=== PATIENT | female | born 1995 | race Caucasian/White ===

== ENCOUNTER → 2018-07-20 12:37 | Outpatient (CLI) | payer OTHER ==
[2015-03-18 19:24] VITALS: BMI 38.9
[~2018-07-20 12:37] MED LIST: HYDROCODONE-APA1 TAB PO; IBUPROFEN600 MG PO; PRENATAL COMPLE1 TAB PO; [UNRECOGNIZED DRUG - OTHER]
== END | disposition home or self-care (01) ==
LOC: D.LDO 12:37
PROVIDERS: ATTEND Obstetrics & Gynecology
DX: O26.899 Other specified pregnancy related conditions, unspecified trimester (principal); Z3A.00 Weeks of gestation of pregnancy not specified

== ENCOUNTER → 2018-08-31 15:44 | Outpatient (CLI) | payer OTHER ==
[2015-03-18 19:24] VITALS: BMI 38.9
== END | disposition home or self-care (01) ==
LOC: D.LDO 15:44
PROVIDERS: ATTEND Obstetrics & Gynecology
DX: O36.8190 Decreased fetal movements, unspecified trimester, not applicable or unspecified (principal); Z3A.00 Weeks of gestation of pregnancy not specified

== ENCOUNTER → 2018-09-29 17:52 | Outpatient (CLI) | payer OTHER ==
[2015-03-18 19:24] VITALS: BMI 38.9
[2018-09-29 18:39] LABS: APPEARANCE CLEAR (CLEAR); BILIRUBIN NEGATIVE (NEGATIVE); COLOR YELLOW (YELLOW); GLUCOSE NEGATIVE (NEGATIVE); KETONE SMALL mg/dL (NEGATIVE); NITRITE NEGATIVE (NEGATIVE); PROTEIN TRACE mg/dL (NEGATIVE); UROBILINOGEN NORMAL (NORMAL)
[2018-09-29 18:41] LABS: BACTERIA FEW /hpf (NONE SEEN); EPITHELIAL CELLS 0-5 /hpf (0-5); RED CELLS - URINE 0-5 /hpf (0-5); WHITE CELLS - URINE 0-5 /hpf (0-5)
== END | disposition home or self-care (01) ==
LOC: D.LDO 17:52
PROVIDERS: ATTEND Obstetrics & Gynecology
DX: O24.913 Unspecified diabetes mellitus in pregnancy, third trimester (principal); Z3A.35 35 weeks gestation of pregnancy; M54.9 Dorsalgia, unspecified

== ENCOUNTER → 2018-10-10 17:35 | Outpatient (CLI) | payer OTHER ==
[2015-03-18 19:24] VITALS: BMI 38.9
[~2018-10-10 17:35] MED LIST changes: +ACETAMINOPHEN500 M1 PO; +CYCLOBENZAPRINE10 MG PO; +HYDROCODON-ACE1 EA10 PO; +PROTONIX40 MG PO
== END | disposition home or self-care (01) ==
LOC: D.LDO 17:35
PROVIDERS: ATTEND Obstetrics & Gynecology
DX: O10.913 Unspecified pre-existing hypertension complicating pregnancy, third trimester (principal); Z3A.37 37 weeks gestation of pregnancy

== ENCOUNTER → 2018-10-17 16:13 | Outpatient (CLI) | payer OTHER ==
[2015-03-18 19:24] VITALS: BMI 38.9
== END | disposition home or self-care (01) ==
LOC: D.LDO 16:13
PROVIDERS: ATTEND Obstetrics & Gynecology
DX: O26.893 Other specified pregnancy related conditions, third trimester (principal); Z3A.38 38 weeks gestation of pregnancy

== ENCOUNTER → 2018-10-20 13:39 | Outpatient (CLI) | payer OTHER ==
[2015-03-18 19:24] VITALS: BMI 38.9
[2018-10-20 14:41] LABS: BASOPHILS 0.1 % (0-2); EOSINOPHILS 0.6 % (0-7); IMMATURE GRANULOCYTES 0.4 % (0-5); LYMPHOCYTES 19.5 % (15-50); MCH 28.2 pg (26.0-34.0); MCHC 34.4 g/dL (31.0-37.0); MCV 82.1 fL (80.0-100.0); MEAN PLATELET VOLUME 10.6 fL (7.4-10.4); MONOCYTES 5.8 % (2-11); NEUTROPHILS 73.6 % (40-80); PLATELET COUNT 185 10x3/uL (130-400); RDW 14.8 % (11.5-14.5); WBC 11.4 10x3/uL (4.8-10.8)
[2018-10-20 15:10] LABS: ALBUMIN 2.5 g/dL (3.4-5.0); ALKALINE PHOSPHATASE 206 U/L (46-116); ALT (SGPT) 19 U/L (10-68); BILIRUBIN - INDIRECT 0.23 mg/dL (0.00-1.00); BILIRUBIN - TOTAL 0.33 mg/dL (0.2-1.3); CALC OSMOLALITY 268 mosm/kg (275-300); CALCIUM 8.2 mg/dL (8.5-10.1); CARBON DIOXIDE 22.6 mmol/L (21.0-32.0); CHLORIDE - SERUM 102 mmol/L (98-107); CREATININE - SERUM 0.6 mg/dL (0.6-1.3); GLUCOSE 74 mg/dL (74-106); POTASSIUM - SERUM 3.8 mmol/L (3.5-5.1); PROTEIN - SERUM 6.3 g/dL (6.4-8.2); SODIUM 136 mmol/L (136-145); UREA NITROGEN 7 mg/dL (7-18); URIC ACID 5.3 mg/dL (2.6-7.2); eGFR NON AFRICAN AMERICAN > 90 mL/min (90-120)
== END | disposition home or self-care (01) ==
LOC: D.LDO 13:39
PROVIDERS: ATTEND Obstetrics & Gynecology
DX: O26.893 Other specified pregnancy related conditions, third trimester (principal); Z3A.37 37 weeks gestation of pregnancy

== ENCOUNTER → 2018-10-21 11:15 | Outpatient (CLI) | payer OTHER ==
[2015-03-18 19:24] VITALS: BMI 38.9
== END | disposition home or self-care (01) ==
LOC: D.LDO 11:15
PROVIDERS: ATTEND Obstetrics & Gynecology
DX: O16.3 Unspecified maternal hypertension, third trimester (principal); Z3A.38 38 weeks gestation of pregnancy

== ENCOUNTER → 2018-10-22 09:39 | Outpatient (CLI) | payer OTHER ==
[2015-03-18 19:24] VITALS: BMI 38.9
== END | disposition home or self-care (01) ==
LOC: D.LDO 09:39
PROVIDERS: ATTEND Obstetrics & Gynecology
DX: O16.3 Unspecified maternal hypertension, third trimester (principal); Z3A.37 37 weeks gestation of pregnancy

== ENCOUNTER 2018-10-23 07:30 | Inpatient (IN) | payer OTHER ==
[~2018-10-23] VITALS: Ht 162.6 cm; Wt 111.4 kg
[~2018-10-23 07:30] MED LIST changes: -HYDROCODON-ACE1 EA10 PO
[2018-10-23 11:16] LABS: HEMATOCRIT 31.8 % (36.0-48.0); MCH 28.1 pg (26.0-34.0); MCHC 34.6 g/dL (31.0-37.0); MCV 81.3 fL (80.0-100.0); MEAN PLATELET VOLUME 10.8 fL (7.4-10.4); RBC 3.91 10x6/uL (4.00-5.40); RDW 14.5 % (11.5-14.5); WBC 10.7 10x3/uL (4.8-10.8)
--- NOTE | 2018-10-23 13:23 | NUR ---
CARE ASSUMED FROM GUNNAR TAVAREZ
--- NOTE | 2018-10-23 14:12 | NUR ---
PT RCVD VIA BED TO ROOM 1274 FROM [employer]PER[employer]OR [employer]FA[employer]URE AT 1359. PT C/O PAIN AT INCISION SITE. JUD ROJAS REPORTS MOD TO HEAVY LOCHIA AND PT IS ON SECOND BAG OF PITOCIN, INFUSING TO RIGHT HAND VIA GRAVITY. ABD DSG C/D/I. FUNDUS BOGGY, HEAVY RUBRA LOCHIA NOTED TO PERIPAD, COMPLETELY SATURATED AND BOB STATES HE CHANGED IT 20 MINUTES AGO. LOCHIA NOTED TO HAVE SOAKED THROUGH CHUX PADS AND TOWELS UNDER PATIENT WELL. BOB ASSSITS THIS RN TO TURN PT TO CLEAN UP AND CHANGE PADS. UPON TURNING PATIENT, APPROX 3-4 GOLF BALL SIZE CLOTS DISLOGED. FUNDAL MASSAGED REPEATED, FUNDUS REMAINS BOGGY WITH STEADY TRICKLE OF LOCHIA. BOB INSTRUCTED TO NOTIFY RENAL DIALYSIS TECHNICIAN THAT THIS RN NEEDS CYTOTEC. JUD SOLIZ TO ROOM WITH [employer] CYTOTEC IN HAND AND WITH DR COLLINS ON UNIT MOBILE PHONE. DR COLLINS ORDERS TO ADMIN THE [employer] CYTOTEC RECTALLY NOW AND EXPRESS PATIENT'S UTERUS WELL. JUD ROJAS REPORTS OFF HIS LAST SET OF PACU VITALS AND EXITS ROOM. JUD SOLIZ ASSISTS THIS RN TO TURNING PATIENT AND CYTOTEC IS ADMIN BY THIS RN ORDERED. FUNDUS MASSAGED UNTIL FIRM. SMALL CLOTS EXPELLED. PERICARE DONE AND PADS CHANGED AGAIN BY THIS RN AND JUD SOLIZ. PT CRYING REQUESTING PAIN MEDICAITON. WILL SET UP MANAGER COMMODITIES ORDERED AND CONTINUE TO MONITOR.
--- NOTE | 2018-10-23 14:20 | NUR ---
ELEVATED BP NOTED, SEE PAPER CHART FOR PRINTOUT OF ALL PT'S POST-OP VS. WILL ALLOW TIME FOR PT PAIN CONTROL AND REASSSES BP.
--- NOTE | 2018-10-23 14:23 | NUR ---
EMT I/85 SET UP ORDERED. PT INSTRUCTED ON USE AND PRESSES BUTTON. BOLUS DOSE ADMIN WELL ORDERED FOR PT C/O PAIN 12/07. FUNDUS FIRMS WITH MASSAGE. MODERATE RUBRA LOCHIA NOTED WITH FEW NICKEL SIZED CLOTS. BED TOWEL CHANGED. LOYOLA CATH DRAINING CLEAR YELLOW URINE, 350ML EMPTIED FROM UROMETER. SCD'S ON LE BILAT AND ON PUMP. IV PITOCIN INFUSING ORDERED AT 125ML/H TO RIGHT HAND. SIG OTHER AT BEDSIDE. WILL CONT TO MONITOR.
--- NOTE | 2018-10-23 15:00 | NUR ---
THIS RN TO ROOM FOR FUNDAL CHECK. FUNDUS FIRMS WITH MASSAGE, SMALL RUBRA LOCHIA WITH SMALL CLOT EXPRESSED. 125ML CLEAR YELLOW URINE EMPTIED FROM UROMETER. WILL CONT TO MONITOR.
--- NOTE | 2018-10-23 15:30 | NUR ---
PATIENT BREASFEEDING . FUNDAL CHECK DONE, FF, ML, U/1. SMALL RUBRA LOCHIA WITHOUT CLOTS. PT REASSURED AND ENCOURAGED WITH . WILL CONT TO MONITOR.
--- NOTE | 2018-10-23 16:30 | NUR ---
FF, ML, U/1. SMALL RUBRA LOCHIA, NO CLOTS. 125ML CLEAR YELLOW URINE EMPTIED FROM UROMETER. FANS DELIVERS CLEAR LIQUID DINNER TRAY. TRAY SET UP FOR PT, SPRITE ALSO PROVIDED PER PT REQUEST. PT DENIES FURTHER NEEDS, STATES SHE IS FEELING MUCH BETTER. SRUX2, CL IN REACH. WILL CONT TO MONITOR.
--- NOTE | 2018-10-23 17:14 | NUR ---
DR COLLINS GIVEN REPORT ON TACHYCARDIA, GOOD URINE OUTPUT, DECREASE IN LOCHIA, AND BP'S. ORDER [facility] FOR CBC AND EKG, AND CALL DR CELESTE WITH RESULTS.
[2018-10-23 17:54] LABS: BASOPHILS 0.1 % (0-2); EOSINOPHILS 0.1 % (0-7); HEMATOCRIT 30.7 % (36.0-48.0); HEMOGLOBIN 10.5 g/dL (12-16); IMMATURE GRANULOCYTES 0.5 % (0-5); LYMPHOCYTES 10.5 % (15-50); MCH 27.9 pg (26.0-34.0); MCHC 34.2 g/dL (31.0-37.0); MCV 81.4 fL (80.0-100.0); MEAN PLATELET VOLUME 10.9 fL (7.4-10.4); MONOCYTES 4.4 % (2-11); NEUTROPHILS 84.4 % (40-80); PLATELET COUNT 175 10x3/uL (130-400); RBC 3.77 10x6/uL (4.00-5.40); RDW 14.4 % (11.5-14.5)
--- NOTE | 2018-10-23 18:08 | NUR ---
THIS RN TO ROOM TO HANG NEW BAG PITOCIN. 110ML CLEAR YELLOW URINE EMPTIED FROM UROMETER. FF, ML, U/1. SMALL RUBRA LOCHIA, NO CLOTS. PT DENIES NEEDS. SRUx2, CL IN REACH. WILL CONT TO MONITOR.
[2018-10-23 18:13] LABS: WBC 15.2 10x3/uL (4.8-10.8)
--- NOTE | 2018-10-23 18:26 | NUR ---
RT TO ROOM OBTAINING EKG
--- NOTE | 2018-10-23 18:40 | NUR ---
DR CELESTE PHONED WITH LAB RESULTS AND EKG. ORDER RCVD TO CONTINUE TO MONITOR HR AND CHECK TEMPS WITH ALL VS.
--- NOTE | 2018-10-23 19:05 | NUR ---
REPORT TO PM SHIFT RN.
[2018-10-23 20:15] VITALS: BP 139/93
--- NOTE | 2018-10-23 20:15 | NUR ---
PATIENT SITTING IN BED HOLDING . SHIFT ASSESSMENT COMPLETED, SEE FLOWSHEET. PERICARE DONE, BLEEDING SMALL RUBRA, PAD CHANGED AND FUNDUS FIRM,ML/U-2. LOYOLA DRAINING TO GRAVITY, PUBLIC HEALTH CLINICAL NURSE SPECIALIST IN PLACE FOR PAIN CONTROL AND BED LOCKED IN LOW POSITION WITH SIDERAILS UPX2 AND CALL MURILLO AND TRAY TABLE IN REACH. WILL CONTINUE TO MONITOR.
[2018-10-23 20:23] LABS: BASOPHILS 0.1 % (0-2); EOSINOPHILS 0.2 % (0-7); HEMATOCRIT 29.6 % (36.0-48.0); HEMOGLOBIN 10.2 g/dL (12-16); IMMATURE GRANULOCYTES 0.5 % (0-5); LYMPHOCYTES 15.4 % (15-50); MCHC 34.5 g/dL (31.0-37.0); MCV 81.3 fL (80.0-100.0); MEAN PLATELET VOLUME 10.7 fL (7.4-10.4); MONOCYTES 4.4 % (2-11); NEUTROPHILS 79.4 % (40-80); PLATELET COUNT 161 10x3/uL (130-400); RBC 3.64 10x6/uL (4.00-5.40); RDW 14.3 % (11.5-14.5)
--- NOTE | 2018-10-23 20:30 | NUR ---
CHICKEN BROTH AND APPLE JUICE PROVIDED PER PT REQUEST.
[2018-10-23 20:59] VITALS: BP 139/93; Ht 162.6 cm; Wt 111.4 kg
--- NOTE | 2018-10-23 21:30 | NUR ---
PT SLEEPING QUIETLY WITH EYES CLOSED. FATHER OF THE BABY ON THE COUCH HOLDING THE BABY. WILL CONTINUE TO MONITOR.
[2018-10-23 22:42] LABS: UDS - AMPHET NEGATIVE QUAL (NEGATIVE); UDS - BARB NEGATIVE QUAL (NEGATIVE); UDS - BENZO NEGATIVE QUAL (NEGATIVE); UDS - COCAINE NEGATIVE QUAL (NEGATIVE); UDS - OPIATE NEGATIVE QUAL (NEGATIVE); UDS - PCP NEGATIVE QUAL (NEGATIVE); UDS - THC NEGATIVE QUAL (NEGATIVE)
--- NOTE | 2018-10-23 22:50 | NUR ---
CHICKEN BROTH AND CRACKERS PROVIDED PER PT REQUEST. NO FURTHER NEEDS IDENTIFIED. WILL CONTINUE TO MONITOR.
[2018-10-24 00:16] VITALS: BP 134/97
--- NOTE | 2018-10-24 00:25 | NUR ---
PERICARE PERFORMED, SMALL CLOT NOTED, BLEEDING SMALL RUBRA. FUNDUS MASSAGED, FIRM,ML,U-2. CLEAN PADS PLACED. PT REPOSITIONED IN THE BED. LOYOLA CATHETER EMPTIED, SEE I+O FLOWSHEET.CLEAN SHEETS AND BLANKET PROVIDED ALONG WITH A CUP OF ICE. NO FURTHER NEEDS IDENTIFIED. WILL CONTINUE TO MONITOR.
--- NOTE | 2018-10-24 02:11 | NUR ---
PATIENT RESTING QUIETLY WITH EYES CLOSED, EASILY AROUSED TO VERBAL AND DENIES PAIN OR NEEDS AT THIS TIME. IV FLUIDS HUNG VIA ALARIS PUMP PER MD ORDERS. SEE EMAR.
--- NOTE | 2018-10-24 04:50 | NUR ---
PT RESTING QUIETLY IN BED WITH EYES CLOSED, RESPIRATIONS EVEN AND NON LABORED. EASILY AROUSED TO VERBAL STIMULI. TEMPERATURE IN ROOM ADJUSTED PER PT REQUEST. NO FURTHER NEEDS IDENTIFIED. WILL CONTINUE TO MONITOR.
[2018-10-24 05:00] VITALS: BP 132/95
[2018-10-24 07:18] LABS: BASOPHILS 0.1 % (0-2); HEMATOCRIT 27.5 % (36.0-48.0); HEMOGLOBIN 9.4 g/dL (12-16); IMMATURE GRANULOCYTES 0.3 % (0-5); MCH 27.8 pg (26.0-34.0); MCHC 34.2 g/dL (31.0-37.0); MCV 81.4 fL (80.0-100.0); MEAN PLATELET VOLUME 10.2 fL (7.4-10.4); NEUTROPHILS 72.6 % (40-80); PLATELET COUNT 142 10x3/uL (130-400); RBC 3.38 10x6/uL (4.00-5.40); RDW 14.4 % (11.5-14.5)
[2018-10-24 07:20] LABS: WBC 10.1 10x3/uL (4.8-10.8)
[2018-10-24 07:33] VITALS: BP 126/91
--- NOTE | 2018-10-24 07:47 | NUR ---
assessment done. vs done. pt awake and alert. verbal responses appro to questions. travis at will. states us using champion of sustainable design. states would like to get up and start moving around. moving self about in bed. states would like solid foods. bowel sounds present but denies passing gas. fundus u1/firm. no discharge with massage. noted mod dark lochia on pad. pt states it has several hours since pad changed.
--- NOTE | 2018-10-24 07:51 | NUR ---
dr field here to see pt.
--- NOTE | 2018-10-24 07:51 | NUR ---
abd dressing removed by dr field. angelina intact.
[2018-10-24 08:11] LABS: RAPID PLASMA REAGIN Non Reactive (Non Reactive)
--- NOTE | 2018-10-24 09:00 | NUR ---
iv changed to saline lock. nino cath removed post bulb deflated with 650cc urine. deies needs at this time.
--- NOTE | 2018-10-24 09:40 | NUR ---
UP TO BATHROOM- TOLERATED WELL. VOIDED 400CC CLEARISH URINE- NOTED ONE SMALL CLOT. RETURNS TO BED. STATES WOULD LIKE PAIN MEDICATION AT THIS TIME. RATES PAIN A 3 ON SCALE OF 0-10 -"UNLESS I MOVE" THEN RATES PAIN A 7 ON SCALE OF 0-10.
--- NOTE | 2018-10-24 09:42 | NUR ---
AWAKE. STATES THAT NOT HURTING TOO BAD BUT WILL TAKE ORAL PAIN MEDICATION.
--- NOTE | 2018-10-24 10:04 | NUR ---
PAIN MED GIVEN.
--- NOTE | 2018-10-24 11:00 | NUR ---
UP TO BATHROOM- VOIDED 600CC- TOLERATED WELL.
[2018-10-24 12:17] VITALS: BP 106/66
--- NOTE | 2018-10-24 13:42 | NUR ---
requesting pain medication before getting up for shower. rates pain a 2 on scale of 0-10. med given.
--- NOTE | 2018-10-24 16:00 | NUR ---
UP TO SHOWER- LINENS CHANGED. TOLERATED WELL. INST ON INCISION CARE.
--- NOTE | 2018-10-24 18:05 | NUR ---
sitting up in bed- at breast. requesting pain medication- co pain 3 on scale of 0-10. states pain is at incision. nipple cream also provided per request.
[2018-10-24 19:30] VITALS: BP 134/93
--- NOTE | 2018-10-24 19:30 | NUR ---
SHIFT ASSESSMENT COMPLETED, SEE FLOWSHEET.
--- NOTE | 2018-10-24 22:04 | NUR ---
NORCO 10/325MG PO PER MD ORDERS. DENIES OTHER NEEDS. PT IS VISITING WITH FAMILY, BED REMAINS LOCKED IN LOW POSITION, SIDE RAILS UPX2, CALL MURILLO AND TRAY TABLE IN REACH. WILL CONTINUE TO MONITOR.
--- NOTE | 2018-10-24 23:30 | NUR ---
PT SITTING UP IN BED WITH LYING IN THE BED GETTING HER DIAPER CHANGED. BABY WIPES PROVIDED PER REQUEST, NO FURTHER NEEDS IDENTIFIED. WILL CONTINUE TO MONITOR.
--- NOTE | 2018-10-25 02:59 | NUR ---
PATIENT LAYING IN BED, INFANT TO NURSERY PER PT REQUEST. NO NEEDS IDENTIFIED. WILL CONTINUE TO MONITOR
--- NOTE | 2018-10-25 04:50 | NUR ---
PT SLEEPING WITH EYES CLOSED, RESPIRATIONS EVEN AND NON LABORED. WILL CONTINUE TO MONITOR.
--- NOTE | 2018-10-25 07:30 | NUR ---
DR COLLINS ON UNIT FOR ROUNDING, SEE PT, DISCUSSES DISCHARGE TO HOME TODAY. VERBAL ORDER RECEIVED FOR D/C TO HOME, AND WRITTEN PRESCRIPTIONS PROVIDED FOR DISCHARGE. WILL PROCEED ORDERED.
[2018-10-25 07:43] VITALS: BP 134/90
--- NOTE | 2018-10-25 07:43 | NUR ---
THIS RN TO ROOM FOR SHIFT ASSESSMENT AT 0738. PT SITTING UP IN BED, EATING PT C/O PAIN RATED 8/10 AT THIS TIME. PT REQUESTING PAIN MEDICATION. PRN PAIN MEDS ADMIN ORDERED, SEE EMAR FOR DOC. SHIFT ASSESSMENT COMPLETED, VSS, SEE FLOWSHEET FOR DOC. RIGHT HAND PIV REMOVED PER DISCHARGE ORDER, CATH INTACT, PRESSURE HELD AND BANDAID APPLIED. DISCHARGE TO HOME DISCUSSED. PT PROVIDED WITH FRESH ICE WATER, DENIES FURTHER NEEDS AT THIS TIME. LIGHTS DIMMED FOR REST PER PT REQUEST. SLEEPING IN [place] AT BEDSIDE, PT SPOUSE RESTING ON BEDSIDE COUCH. SRUx2, CL IN REACH. WILL CONT TO MONITOR.
--- NOTE | 2018-10-25 08:45 | NUR ---
THIS RN TO ROOM FOR PT CHECK, PT RESTING SUPINE WITH EYES CLOSED RESPIRATIONS EVEN AND UNLABORED. SRUx2, CL IN REACH. WILL CONT TO MONITOR.
[2018-10-25] MEDS ORDERED: IBUPROFEN600 MG PO (08:55)
[2018-10-25] MEDS ORDERED: HYDROCODON-ACE1 EA10 PO (08:55)
--- NOTE | 2018-10-25 10:15 | NUR ---
PT SITTING UP IN BED. PT DENIES PAIN OR ANY NEEDS. SRUx2, CL IN REACH. WILL CONT TO MONITOR.
--- NOTE | 2018-10-25 11:30 | NUR ---
PT PROVIDED WITH PANTIES AND PADS PER REQUEST, DENIES FURTHER NEEDS. WILL CONT TO MONITOR.
--- NOTE | 2018-10-25 12:05 | NUR ---
PT GIVEN DISCHARGE INSTRUCTIONS WELL WRITTEN PRESCRIPTIONS PROVIDED FOR PAIN CONTROL POST D/C TO HOME. PT VERBALIZES UNDERSTANDING AND DENIES QUESTIONS, SIGNS CHART COPIES. PT REQUESTING PAIN MED BEFORE D/C TO HOME.
--- NOTE | 2018-10-25 12:10 | NUR ---
PT ADMIN NORCO REQUESTED FOR PAIN CONTROL FOR RIDE HOME AND WHILE WAITING FOR PRESCRIPTIONS TO BE FILLED. PT RATING PAIN 5/10 AT REST, WORSE WITH MOVEMENT. SEE EMAR FOR DOC.
--- NOTE | 2018-10-25 12:30 | NUR ---
PT OFF UNIT VIA W/C WITH IN CARSEAT, TO PRIVATE VEHICLE FOR SPOUSE TO DRIVE HOME. INSTRUCTIONS AND PRESCRIPTIONS IN HAND.
--- NOTE | 2018-11-13 13:26 | OP ---
PATIENT NAME: STEFANIA FISCHER MEDICAL RECORD: [id number] :95 LOCATION:[facility].[id number] ADMISSION DATE:10/23/18 SURGEON: JOAO GUILLEN MD DATE OF OPERATION: 10/23/2018 PREOPERATIVE DIAGNOSES: 1. Term intrauterine at 39 weeks. 2. History of previous section. POSTOPERATIVE DIAGNOSES: 1. Term intrauterine at 39 weeks. 2. History of previous section. PROCEDURE: A repeat low transverse section. SURGEON: Joao Guillen MD ANESTHESIA: Regional via spinal. ESTIMATED BLOOD LOSS: 1000 cc. INTRAVENOUS FLUIDS: Per anesthesia record. FINDINGS: 1. Grossly normal-appearing fallopian tubes and ovaries. 2. Viable infant, Apgars 9 at 1 and 9 at 5. 3. Placenta delivered manually intact, 3-vessel cord noted. SPECIMENS: Placenta and cord for gases. PROCEDURE IN DETAIL: The patient was taken to the operating room where regional anesthesia was achieved without difficulty. The patient was then prepped and draped in normal sterile fashion in the dorsal supine position. SCDs were on and functioning normally. A Leonardo catheter had been placed and was draining freely. The patient was then prepped and draped. A repeat Pfannenstiel skin incision was made, extended downward to the underlying subcutaneous fat to level of fascia. The fascia was then excised in the midline with scalpel and extended bilaterally using the Koroma scissors. Superior and inferior aspects of the fascial incision were grasped with Juan José clamps times 2, tented upward, and sharply dissected from the underlying rectus muscle using the Koroma scissors and the Bovie cautery. Rectus muscle was then bluntly in the midline and the peritoneum identified. The peritoneum was entered sharply using the Metzenbaum scissors at the superior aspect of the incision. Following confirmation of intraperitoneal placement, further dissection was then performed of the peritoneum and the tissue surrounding the bladder. A bladder flap was created by excising the anterior leaf of the broad ligament across the lower uterine segment with several areas of scar from previous section. A bladder blade was then placed into the pelvis. A low transverse incision was made using the scalpel. The was delivered atraumatically and it was bulb suctioned upon delivery. Cord was clamped times 2, cut, and the was handed to awaiting nursery team. Cord was then obtained for gases and the placenta was removed manually intact, 3-vessel cord was noted. The uterus was then vigorously massaged and cleared of all clots and debris using a dry lap sponge. The uterine incision was repaired with 0 Vicryl in a running locked fashion times 2 with good hemostasis noted. Posterior cul-de-sac was then OPERATIVE REPORT [id number] STEFANIA FISCHER thoroughly irrigated and uterus was replaced into the pelvis. The anterior cul-de-sac was then thoroughly irrigated and good hemostasis was noted from the uterine incision. Counts were correct times 2 for sponges, needles, and instruments. At this point, the fascia was repaired with 0 loop PDS times 1 and the skin repaired with angelina. The patient tolerated the procedure well, transferred to postanesthesia recovery stable without incident. TRANSINT:[id number] Voice Confirmation ID: [id number] DOCUMENT ID: [id number] JOAO GUILLEN MD at 1326 CC: [id number] DICTATION DATE: 11/10/18921 METAL SPRAYER MACHINED PARTS: 11/10/18 1134 DIS IN 10/25/18 [facility] [address] [place] [address]
== END 2018-10-25 12:30 | disposition home or self-care (01) | DRG 788 ==
LOC: D.LD 10:18 → D.WS 12:00 → D.LD 10-25 12:30
PROVIDERS: ADMIT Obstetrics & Gynecology; ATTEND Obstetrics & Gynecology
PROC: 10D00Z1 Extraction of Products of Conception, Low, Open Approach (ICD-10-PCS; principal; 2018-10-23 12:00)
DX: O34.211 Maternal care for low transverse scar from previous cesarean delivery (principal); Z3A.39 39 weeks gestation of pregnancy; Z37.0 Single live birth

== ENCOUNTER → 2018-11-01 16:12 | Outpatient (CLI) | payer OTHER ==
[2018-10-23 20:59] VITALS: BMI 42.1
[~2018-11-01 16:12] MED LIST changes: +HYDROCODON-ACE1 EA10 PO
== END | disposition home or self-care (01) ==
LOC: D.LDO 16:12
PROVIDERS: ATTEND Obstetrics & Gynecology
DX: O90.89 Other complications of the puerperium, not elsewhere classified (principal); R51 Headache

== ENCOUNTER → 2018-11-03 15:13 | Outpatient (CLI) | payer OTHER ==
[2018-10-23 20:59] VITALS: BMI 42.1
== END | disposition home or self-care (01) ==
LOC: D.LDO 15:13
PROVIDERS: ATTEND Obstetrics & Gynecology
DX: O90.89 Other complications of the puerperium, not elsewhere classified (principal); R51 Headache

== ENCOUNTER 2020-06-20 13:50 | Emergency (ER) | payer OTHER ==
[~2020-06-20] VITALS: Ht 162.6 cm; Wt 91.4 kg
[2020-06-20 13:54] VITALS: BP 142/102; Ht 162.6 cm; Wt 91.4 kg
[2020-06-20 14:15] LABS: BASOPHILS 0.2 % (0-2); EOSINOPHILS 2.2 % (0-7); HEMATOCRIT 41.2 % (36.0-48.0); IMMATURE GRANULOCYTES 0.2 % (0-5); LYMPHOCYTE ABS# 3.64 10x3/uL (1.18-3.74); MCV 85.3 fL (80.0-100.0); MEAN PLATELET VOLUME 10.2 fL (7.4-10.4); MONOCYTES 5.9 % (2-11); NEUTROPHIL ABS# 4.28 10x3/uL (1.56-6.13); NEUTROPHILS 49.5 % (40-80); RBC 4.83 10x6/uL (4.00-5.40); WBC 8.7 10x3/uL (4.8-10.8)
[2020-06-20 14:19] LABS: PLATELET COUNT 253 10x3/uL (130-400)
[2020-06-20 14:24] LABS: CALC OSMOLALITY 275 mosm/kg (275-300); CALCIUM 9.9 mg/dL (8.5-10.1); CARBON DIOXIDE 26.4 mmol/L (21.0-32.0); CHLORIDE - SERUM 101 mmol/L (98-107); CREATININE - SERUM 0.9 mg/dL (0.6-1.3); GLUCOSE 91 mg/dL (74-106); POTASSIUM - SERUM 3.6 mmol/L (3.5-5.1); SODIUM 138 mmol/L (136-145); UREA NITROGEN 13 mg/dL (7-18); eGFR NON AFRICAN AMERICAN 81 mL/min (90-120)
[2020-06-20 14:30] LABS: ALBUMIN 4.5 g/dL (3.4-5.0); ALKALINE PHOSPHATASE 89 U/L (30-120); ALT (SGPT) 107 U/L (10-68); BILIRUBIN - TOTAL 0.62 mg/dL (0.2-1.3); MAGNESIUM - SERUM 2.2 mg/dL (1.8-2.4); PROTEIN - SERUM 8.8 g/dL (6.4-8.2)
[2020-06-20] MEDS ORDERED: GEODON20 MG PO (14:36)
== END 2020-06-20 15:46 | disposition home or self-care (01) ==
LOC: D.ER 13:50
PROVIDERS: Emergency Medicine
DX: R41.82 Altered mental status, unspecified (principal); I10 Essential (primary) hypertension

== ENCOUNTER 2020-08-08 04:03 | Emergency (ER) | payer OTHER ==
[~2020-08-08] VITALS: Ht 162.6 cm; Wt 100.0 kg
[~2020-08-08 04:03] MED LIST changes: +GEODON20 MG PO
[2020-08-08 04:09] VITALS: BP 137/97; Ht 162.6 cm; Wt 100.0 kg
[2020-08-08 04:58] LABS: BACTERIA MOD HPF (<MOD); BILIRUBIN NEGATIVE (NEGATIVE); KETONE NEGATIVE mg/dL (< 1+); NITRITE NEGATIVE (NEGATIVE); SQUAMOUS EPITHELIAL 3 HPF (0-4); UROBILINOGEN NORMAL mg/dL (< 2); WHITE CELLS - URINE 3 HPF (0-4)
[2020-08-08 05:56] LABS: BASOPHILS 0.3 % (0-2); EOSINOPHILS 1.6 % (0-7); HEMOGLOBIN 12.8 g/dL (12-16); LYMPHOCYTES 29.6 % (15-50); MCHC 34.5 g/dL (31.0-37.0); MEAN PLATELET VOLUME 8.8 fL (7.4-10.4); MONOCYTES 5.7 % (2-11); NEUTROPHILS 62.8 % (40-80); PLATELET COUNT 249 10x3/uL (130-400); RDW 13.1 % (11.5-14.5); WBC 10.8 10x3/uL (4.8-10.8)
[2020-08-08 06:12] LABS: CALC OSMOLALITY 274 mosm/kg (275-300); CHLORIDE - SERUM 103 mmol/L (98-107); CREATININE - SERUM 0.7 mg/dL (0.6-1.3); GLUCOSE 101 mg/dL (74-106); POTASSIUM - SERUM 3.9 mmol/L (3.5-5.1); SODIUM 138 mmol/L (136-145); UREA NITROGEN 9 mg/dL (7-18); eGFR NON AFRICAN AMERICAN > 90 mL/min (90-120)
[2020-08-08 06:43] LABS: ALBUMIN 3.4 g/dL (3.4-5.0); ALKALINE PHOSPHATASE 72 U/L (30-120); ALT (SGPT) 32 U/L (10-68); BILIRUBIN - TOTAL 0.29 mg/dL (0.2-1.3); HCG - QUANTITATIVE (MATERNAL) 52544 mIU/mL; PROTEIN - SERUM 7.5 g/dL (6.4-8.2)
== END 2020-08-08 06:36 | disposition home or self-care (01) ==
LOC: D.ER 04:03
PROVIDERS: Family Medicine
DX: O16.1 Unspecified maternal hypertension, first trimester (principal); Z3A.08 8 weeks gestation of pregnancy; R10.32 Left lower quadrant pain